=== PATIENT | female | born 1975 | race Two or more races ===

== ENCOUNTER 2020-10-27 15:41 | Emergency (ER) | payer MEDICAID ==
[~2020-10-27] VITALS: Ht 165.1 cm; Wt 65.0 kg
[2020-10-27 15:52] VITALS: BP 144/98
[2020-10-27] MEDS ORDERED: ONDANSETRON HCL 4MG/2ML INJ IV ONE (17:00)
[2020-10-27 17:52] LABS: BASOPHILS % 0.6 % (0.0-2.0); EOSINOPHILS % 5.6 % (0.0-5.0); HEMATOCRIT. 42.2 % (36.0-48.0); HEMOGLOBIN. 14.4 g/dL (12.0-16.0); LYMPHOCYTES % 20.8 % (20.0-50.0); MEAN CORPUSCULAR HEMOGLOBIN 30.6 pg (28.0-32.0); MEAN CORPUSCULAR VOLUME 89.2 fL (81.0-99.0); MEAN PLATELET VOLUME 8.2 fl (7.4-10.4); MONOCYTES % 7.8 % (2.0-8.0); NEUTROPHILS % 65.2 % (40.0-76.0); PLATELET 283 x1000/uL (130-400); RED BLOOD CELL COUNT 4.73 mill/uL (4.2-5.4); RED CELL DISTRIBUTION WIDTH 13.1 % (11.6-14.6)
[2020-10-27 17:54] LABS: CHLORIDE 111 mEq/L (98-107)
[2020-10-27 18:05] LABS: HCG SCREEN NEGATIVE
[2020-10-27 18:06] LABS: CLARITY URINE CLEAR (CLEAR); COLOR URINE YELLOW (YELLOW); KETONES URINE NEGATIVE (NEGATIVE); LEUKOCYTE ESTERASE URINE NEGATIVE (NEGATIVE); NITRITE URINE NEGATIVE (NEGATIVE); OCCULT BLOOD URINE NEGATIVE (NEGATIVE); PH URINE 6.5 (4.5-8.0); PROTEIN URINE NEGATIVE (NEGATIVE); SPECIFIC GRAVITY URINE 1.014 (1.005-1.030); UROBILINOGEN URINE 0.2 E.U./dL (0.2-1.0)
== END 2020-10-27 19:19 | disposition left against medical advice (07) ==
LOC: ER 15:41
DX: C55 Malignant neoplasm of uterus, part unspecified (principal); R03.0 Elevated blood-pressure reading, without diagnosis of hypertension
CPT/HCPCS: 36415; 80053; 81003; 83690; 84703; 85025; 93005; 99284; J2405

== ENCOUNTER 2022-12-23 03:20 | Emergency (ER) | payer BC, MEDICAID ==
[~2022-12-23] VITALS: Ht 154.9 cm; Wt 57.0 kg
[2022-12-23 03:30] VITALS: O2SAT 100
[2022-12-23 04:15] VITALS: TEMP 97.4
[2022-12-23] MEDS ORDERED: DICYCLOMINE 10 MG/5 ML ORAL SYR PO STA (04:23)
[2022-12-23] MEDS ORDERED: KETOROLAC 30MG/ML VIAL IV STA (04:23)
[2022-12-23] MEDS ORDERED: MAGNESIUM/ALUMINUM HYDROXIDE/SIMETHICONE 30ML UDC PO STA (04:23)
[2022-12-23] MEDS ORDERED: ONDANSETRON HCL 4MG/2ML INJ IV STA (04:23)
[2022-12-23 04:27] LABS: HEMATOCRIT. 44.2 % (36.0-48.0); MEAN CORPUSCULAR HEMOGLOBIN 29.1 pg (28.0-32.0); MEAN CORPUSCULAR VOLUME 85.4 fL (81.0-99.0); PLATELET 253 x1000/uL (130-400); RED BLOOD CELL COUNT 5.17 mill/uL (4.2-5.4); RED CELL DISTRIBUTION WIDTH 13.9 % (11.6-14.6); WHITE BLOOD COUNT 6.4 x1000/uL (4.5-11.0)
[2022-12-23] MEDS ORDERED: FAMOTIDINE 20MG TABLET PO ONE (04:30)
[2022-12-23 04:34] LABS: CHLORIDE 104 mEq/L (98-107); INDEX HEMOLYSI 1 (1-3); INDEX ICTERIC 1 (1-4); INDEX LIPEMIC 1 (1-3); POTASSIUM 3.6 mEq/L (3.5-5.1); SODIUM 135 mEq/L (136-145)
[2022-12-23 04:42] LABS: ALANINE AMINOTRANSFERASE 51 IU/L (13-61); ALBUMIN 2.8 g/dL (3.4-5.0); ASPARTATE AMINOTRANSFERASE 35 IU/L (15-37); BILIRUBIN TOTAL 0.2 mg/dL (0.1-1.0); CALCIUM 9.3 mg/dL (8.5-10.1); CARBON DIOXIDE 27 mEq/L (21-32); CREATININE 0.6 mg/dL (0.6-1.3); GLUCOSE 116 mg/dL (70-105); PROTEIN TOTAL 6.6 g/dL (6.0-8.3); UREA NITROGEN BLOOD 6 mg/dL (7-21)
[2022-12-23] MEDS ORDERED: FAMOTIDINE 20MG TABLET PO NR (04:45)
[2022-12-23] MEDS ORDERED: MAGNESIUM/ALUMINUM HYDROXIDE/SIMETHICONE 30ML UDC PO NR (04:45)
[2022-12-23] MEDS ORDERED: KETOROLAC 30MG/ML VIAL IV NR (04:45)
[2022-12-23] MEDS ORDERED: ONDANSETRON HCL 4MG/2ML INJ IV NR (04:45)
[2022-12-23 04:53] LABS: DIFFERENTIAL COMMENT 1
[2022-12-23 05:14] LABS: ATYPICAL LYMPHOCYTES 4; PLATELET ESTIMATE NORMAL
[2022-12-23 05:15] LABS: HCG SCREEN NEGATIVE
[2022-12-23] MEDS ORDERED: ONDA4TAB11 PO (05:23)
[2022-12-23] MEDS ORDERED: LOPE2CAP MT (05:23)
[2022-12-23] MEDS ORDERED: LACT1CAP68 MT (05:25)
[2022-12-23 05:50] VITALS: BP 131/87; PULSE 73; RESP 15
== END 2022-12-23 05:50 | disposition home or self-care (01) ==
LOC: ER 03:20
DX: K52.9 Noninfective gastroenteritis and colitis, unspecified (principal); Z88.0 Allergy status to penicillin; Z88.6 Allergy status to analgesic agent; Z88.5 Allergy status to narcotic agent; Z88.1 Allergy status to other antibiotic agents; Z90.49 Acquired absence of other specified parts of digestive tract; Z98.890 Other specified postprocedural states
CPT/HCPCS: 80053; 84703; 83690; 85025; 36415; 96374; 96375; 99284; J1885; J2405; Z7610

== ENCOUNTER 2023-04-15 01:42 | Emergency (ER) | payer BC, MEDICAID ==
[~2023-04-15] VITALS: Ht 162.6 cm; Wt 54.0 kg
[~2023-04-15 01:42] MED LIST: LACT1CAP68 MT; LOPE2CAP MT; ONDA4TAB11 PO
[2023-04-15 02:44] VITALS: BP 131/96; PULSE 111; RESP 17; TEMP 98.5; O2SAT 97
[2023-04-15] MEDS ORDERED: FLUORESCEIN SODIUM 1MG/STRIP BOTHEYE ONE (05:00)
[2023-04-15] MEDS ORDERED: TETRACAINE 0.5% OPHTH DROPS 4ML BOTHEYE ONE (05:00)
[2023-04-15] MEDS ORDERED: LIDOCAINE HCL/PF 1% 10 MG/ML 5ML VIAL INFIL ONE (05:45)
[2023-04-15] MEDS ORDERED: CEPH500T PO (05:49)
[2023-04-15] MEDS ORDERED: POLY10DR RIGHTEYE (05:49)
[2023-04-15] MEDS ORDERED: SULF1TAB48 PO (05:49)
== END 2023-04-15 06:27 | disposition home or self-care (01) ==
LOC: ER 04:02
DX: L03.111 Cellulitis of right axilla (principal); H10.021 Other mucopurulent conjunctivitis, right eye; Z88.0 Allergy status to penicillin; Z88.1 Allergy status to other antibiotic agents; Z88.5 Allergy status to narcotic agent; Z88.6 Allergy status to analgesic agent; Z79.899 Other long term (current) drug therapy
CPT/HCPCS: 76882; 10060; 99284; J3490; Z7610 ×3

== ENCOUNTER 2023-08-09 04:08 | Emergency (ER) | payer BC, MEDICAID ==
[~2023-08-09] VITALS: Ht 157.5 cm; Wt 56.0 kg
[~2023-08-09 04:08] MED LIST changes: +CEPH500T PO; +POLY10DR RIGHTEYE; +SULF1TAB48 PO
[2023-08-09 04:37] VITALS: BP 152/93; PULSE 98; RESP 18; TEMP 98.4; O2SAT 100
[2023-08-09] MEDS: BACITRACIN ZINC OINT UDPKT TOP ONE (05:45)
[2023-08-09] MEDS ORDERED: SULF1TAB48 MT (06:06)
[2023-08-09] MEDS ORDERED: CEPH500C2 MT (06:06)
== END 2023-08-09 06:59 | disposition home or self-care (01) ==
LOC: ER 04:38
DX: L02.411 Cutaneous abscess of right axilla (principal)
CPT/HCPCS: 10060; 99282

== ENCOUNTER 2023-08-16 14:53 | Emergency (ER) | payer BC ==
[~2023-08-16] VITALS: Ht 154.9 cm; Wt 56.4 kg
[~2023-08-16 14:53] MED LIST changes: +CEPH500C2 MT; +SULF1TAB48 MT
[2023-08-16 15:00] VITALS: BP 164/102; PULSE 100; RESP 18; TEMP 98.4; O2SAT 98
== END 2023-08-16 15:50 | disposition home or self-care (01) ==
LOC: ER 14:53
DX: L02.411 Cutaneous abscess of right axilla (principal); Z90.49 Acquired absence of other specified parts of digestive tract; Z98.890 Other specified postprocedural states; Z79.899 Other long term (current) drug therapy
CPT/HCPCS: 10060; 99282

== ENCOUNTER 2023-08-30 17:04 | Emergency (ER) | payer BC, MEDICAID ==
[~2023-08-30] VITALS: Ht 165.1 cm; Wt 65.0 kg
[2023-08-30 17:14] VITALS: BP 171/106; RESP 20; TEMP 98.5; O2SAT 100
[2023-08-30 17:22] VITALS: PULSE 125
== END 2023-08-31 01:57 | disposition left against medical advice (07) ==
LOC: ER 17:04
DX: H57.89 Other specified disorders of eye and adnexa (principal); Z53.21 Procedure and treatment not carried out due to patient leaving prior to being seen by health care provider

== ENCOUNTER 2023-11-12 23:45 | Emergency (ER) | payer BC, MEDICAID ==
[~2023-11-12] VITALS: Ht 156.2 cm; Wt 58.4 kg
[2023-11-12 23:51] VITALS: O2SAT 98
[2023-11-13] MEDS ORDERED: IBUP-2029 MT (01:32)
[2023-11-13] MEDS ORDERED: SULF1TAB48 MT (01:32)
[2023-11-13] MEDS ORDERED: CEPH500T MT (01:32)
[2023-11-13] MEDS: IBUPROFEN 600MG TABLET PO ONE (02:28)
[2023-11-13] MEDS: BACITRACIN ZINC OINT UDPKT TOP ONE (02:29)
[2023-11-13 03:00] VITALS: BP 158/88; PULSE 90; RESP 20; TEMP 36.61404; O2SAT 100
== END 2023-11-13 02:29 | disposition home or self-care (01) ==
LOC: ER 23:45
DX: L02.411 Cutaneous abscess of right axilla (principal); Z88.0 Allergy status to penicillin
CPT/HCPCS: 99283

== ENCOUNTER 2024-10-27 16:22 | Emergency (ER) | payer MEDICAID ==
[~2024-10-27] VITALS: Ht 157.5 cm; Wt 55.0 kg
[~2024-10-27 16:22] MED LIST changes: +CEPH500T MT; +IBUP-2029 MT; +ONDA-239 PO; -ONDA4TAB11 PO
[2024-10-27 16:33] VITALS: O2SAT 100
[2024-10-27] MEDS ORDERED: CLIN-194 MT (19:05)
[2024-10-27] MEDS ORDERED: ERYT1OIN6 EACHEYE (19:05)
[2024-10-27] MEDS ORDERED: TRIMO EACHEYE (19:05)
[2024-10-27 20:02] VITALS: BP 191/112; PULSE 91; RESP 14; TEMP 36.9; O2SAT 100
== END 2024-10-27 20:00 | disposition home or self-care (01) ==
LOC: ER 16:22
DX: H01.004 Unspecified blepharitis left upper eyelid (principal); H01.001 Unspecified blepharitis right upper eyelid; I10 Essential (primary) hypertension; Z88.0 Allergy status to penicillin; Z88.1 Allergy status to other antibiotic agents; Z88.5 Allergy status to narcotic agent; Z98.51 Tubal ligation status; Z90.49 Acquired absence of other specified parts of digestive tract; Z79.899 Other long term (current) drug therapy
CPT/HCPCS: 99283